=== PATIENT | female | born 1975 | race Caucasian/White ===

== ENCOUNTER 2023-12-02 18:28 | Emergency (ER) | payer BC ==
[~2023-12-02] VITALS: Ht 177.8 cm; Wt 102.5 kg
[2023-12-02] MEDS ORDERED: IBUP-1957 PO (21:47)
[2023-12-02] MEDS ORDERED: ACET-2605 PO (21:47)
[2023-12-02 21:56] VITALS: BP 126/83; TEMP 97.8; O2SAT 100
== END 2023-12-02 21:57 | disposition home or self-care (01) ==
LOC: ER 18:28
DX: M25.562 Pain in left knee (principal); Z88.2 Allergy status to sulfonamides; Z88.8 Allergy status to other drugs, medicaments and biological substances; Z60.2 Problems related to living alone
CPT/HCPCS: 73564-TC; 93971-TC